=== PATIENT | female | born 1975 | race Caucasian/White ===

== ENCOUNTER 2021-05-14 11:23 | Emergency (ER) | payer BC, SELFPAY ==
[2021-05-14 11:37] VITALS: BP 147/103; PULSE 98; RESP 16; TEMP 36.4; O2SAT 99
--- NOTE | 2021-05-14 11:41 | ED.SKABFB ---
HPI - Skin/Abscess/Foreign Bdy General Chief complaint: Skin/Abscess/Foreign Body Stated complaint: Rash Rt Shoulder Source: patient Mode of arrival: ambulatory Limitations: no limitations History of Present Illness HPI narrative: Patient reports abscess to right upper back. She reports having a small bump that she noticed about 1-2 months ago. She reports over the past few days it has increased in size and has some redness and small amount of drainage. Mild tenderness. Denies all other complaints at this time. She denies using [id number] medications prior to arrival. Patient reports she recently moved to [place] and has not asked tablets to a primary care physician. Patient reports a history of hypertension and type 2 diabetes. She reports medication compliance. MD complaint: abscess/boil Related Data Allergies Allergy/AdvReac Type Severity Reaction Status Date / Time No Known Allergies Allergy Verified 05/14/21 11:48 Review of Systems Review of Systems: CONSTITUTIONAL: Denies fever, chills, or sweats. EYES: Denies visual changes, redness, or discharge. ENT: Denies rhinorrhea, congestion, sore throat, or otalgia. CARDIOVASCULAR: Denies chest pain, palpitations, or edema. RESPIRATORY: Denies cough or dyspnea. GASTROINTESTINAL: Denies abdominal pain, nausea, vomiting, or diarrhea. GENITOURINARY: Denies dysuria or hematuria. SKIN: Abscess to right shoulder MUSCULOSKELETAL: Denies back pain, joint pain, or myalgia. NEUROLOGIC: Denies headache, numbness, dizziness, or weakness. PSYCHIATRIC: Denies anxiety or depression. [facility] Past Medical History Medical History (Updated 05/16/21 @ 10:37 by GREYSON Hoang) Diabetes HTN (hypertension) Surgical History Surgical History (Updated 05/16/21 @ 10:37 by GREYSON Hoang) H/O ovarian cystectomy Family History Family History (Updated 05/16/21 @ 10:37 by GREYSON Hoang) Other Hypertension Social History Social History (Updated 05/16/21 @ 10:36 by GREYSON Hoang) Smoking status: Never smoker Alcohol intake: never Substance use: never Living arrangements: with family Occupation/Education: occupation Gender identity (if verbalized by the patient): Female Comments At the time of signature, I have reviewed and agree with nursing past medical, surgical, social, and family history unless otherwise noted. Please see nursing chart for further information. There is no relevant family history pertinent to the presenting complaint. Exam Narrative: GENERAL: Well-appearing, well-nourished, and in no acute distress. HEAD: Normocephalic, atraumatic. EYES: EOMI. No redness or drainage. ENT: Mucous membranes pink and moist. CHEST: No respiratory distress. HEART: Regular rate and rhythm. EXTREMITIES: Normal range of motion. SKIN: Approximate 4 x 4 centimeter abscess to right posterior shoulder, erythematous and fluctuance noted. NEURO: No focal deficits. Alert and oriented x3. Gait steady. PSYCH: Normal affect. No signs of depression or anxiety. Course Vital Signs Vital signs: Vital Signs Temperature 36.4 C 05/14/21 11:37 Pulse Rate 98 05/14/21 11:37 Respiratory Rate 16 05/14/21 11:37 Blood Pressure 147/103 H 05/14/21 11:37 Pulse Oximetry 99 05/14/21 11:37 Temperature 36.4 C 05/14/21 11:37 Pulse Rate 98 05/14/21 11:37 Respiratory Rate 16 05/14/21 11:37 Blood Pressure 147/103 H 05/14/21 11:37 Pulse Oximetry 99 05/14/21 11:37 Reviewed-patient is informed that they may have pre-hypertension or hypertension based on a blood pressure reading. I recommend the patient call the primary care provider listed on their discharge instructions or a physician of their choice this week to arrange follow-up for further evaluation of possible pre-hypertension or hypertension. Procedures Abscess I/D back: Date of Incision: 05/14/21 Time of Incision: 12:26 Side (if applicabl
[2021-05-14] MEDS: TETANUS,DIPHTHERIA,AC PERTUSSIS ADULT (0.5 ML) BOOSTRIX IM (12:00)
== END 2021-05-14 12:37 | disposition home or self-care (01) ==
PROVIDERS: Emergency Provider Nurse Practitioner
DX: L03.113 Cellulitis of right upper limb (principal); L02.413 Cutaneous abscess of right upper limb; Z23 Encounter for immunization; E11.9 Type 2 diabetes mellitus without complications; I10 Essential (primary) hypertension
CPT/HCPCS: 10061; 87070; 87075; 87205; 90471; 90715; 99203; G0463